=== PATIENT | male | born 2005 | race Caucasian/White ===

== ENCOUNTER 2024-09-28 13:12 | Emergency (ER) | payer OTHER, SELFPAY ==
[2024-09-28 13:15] VITALS: BP 125/83
[2024-09-28 13:50] LABS: COVID-19 Antigen Negative (Negative)
--- NOTE | 2024-09-28 14:57 | ED.GENMED ---
History of Present Illness
General
Chief Complaint: Fever
Source: patient
Exam Limitations: none
Time Seen by Provider: 09/28/24 14:43
History of Present Illness
History of Present Illness:
19yoM with a history of autism presenting with his halfway counselor for evaluation of a fever. Patient started to become sick about 2 days ago. Symptoms include fever, cough, sore throat, and congestion. He is having a burning sensation in
his chest primarily with coughing. Tmax 103. He has been taking DayQuil and Mucinex. Several employees and members of the halfway are also sick currently with similar symptoms. No abdominal pain, vomiting, diarrhea.
Phy Exam
General Physical Exam
General Presentation: well appearing and no apparent distress
General age: appears stated age
General Skin: warm and dry
General Habitus: normal
General Mental: alert
ENT Exam
ENT Exam: pharynx normal, neck supple and normocephalic
Cardiovascular Exam
Cardiovascular Exam: regular rate/rhythm and no murmur
Pulmonary Exam
Pulmonary Exam: lungs clear, no respiratory distress, no rales, no crackles and no rhonchi
Neurological Exam
Neurological Exam: alert
[place] Coma Scale
Eye Opening: Spontaneous
Verbal Response: Oriented
Motor Response: Obeys Commands
GCS Total Score: 15
Skin Exam
Skin Exam: normal color and warm/dry
Psychiatric Exam
Psychiatric Exam: normal mood/affect
Course
Orders/Labs/Results
Orders:
Orders
09/28/24 13:20
COVID-19 Antigen Urgent
Source: Nasal Swab
Influenza A+B Rapid Molecular Urgent
RHIANNA Source: Nasal Swab
Specimen Description:
Vital Signs
Initial and Last Documented VS:
Initial Vital Signs
Temp Pulse Resp BP Pulse Ox
100.7 F H 117 20 125/83 98
09/28/24 13:15 09/28/24 13:15 09/28/24 13:15 09/28/24 13:15 09/28/24 13:15
Last Documented Vital Signs
Temp Pulse Resp BP Pulse Ox
100.7 F H 117 20 125/83 98
09/28/24 13:15 09/28/24 13:15 09/28/24 13:15 09/28/24 13:15 09/28/24 13:15
MDM/Problems Addressed
Differential Diagnosis Includes:
19yoM here with flu-like symptoms x 2 days. C/o fevers, cough, congestion. Several other people at his halfway also sick. He is febrile to 100.7 on arrival with associated tachycardia. Remainder of vital signs normal. He is well-appearing in
no acute distress. Exam reassuring. Differential diagnosis includes but is not limited to: Viral illness, bronchitis, less likely pneumonia
Influenza swab sent in triage. Patient is positive for influenza A. No indication for further workup. Supportive care discussed. Advised follow-up with PCP and ED return precaution discussed. He was discharged stable condition.
*Critical Care Note
Total Time (30-74mins, 75-104mins- exclusive of procedures): Not Applicable
ED Attending Note
-
Portions of this chart may have been created with voice recognition software.� Occasional wrong word or��sound alike� substitutions may have occurred due to the inherent limitations of voice recognition software.
Discharge Plan
Departure
Patient Disposition: Home (Routine Discharge)
Date of Disposition: 09/28/24
Time of Disposition: 15:00
Patient with high blood pressure during this ER visit?: No
Discharge Problem:
Influenza A
Instructions: Flu in adults - ED discharge instructions
Activity Restrictions/Additional Instructions:
Drink plenty of fluids and rest. Take Tylenol and ibuprofen as needed for fevers.
Please follow-up with your family doctor. Return to the ER with any worsening symptoms or trouble breathing.
Interventions
Interventions:
*Risk Screen - Suicide Last Done: 09/28/24 13:15
*General Assessment Last Done: 09/28/24 13:15
*Neglect/Abuse Screening Last Done: 09/28/24 13:15
ED- Fall Risk Assessment Last Done: 09/28/24 15:15
*ED COVID-19 Vaccine History Last Done: 09/28/24 13:15
*Nursing Disposition Last Done: 09/28/24 15:15
ED- Neurological Assessment Last Done: 09/28/24 15:15
ED-Skin Assessment Last Done: 09/28/24 15:15
Discharge Date and Time
Discharge Date/Time: 09/28/24 15:16
Print Language: ITALIAN
== END 2024-09-28 15:16 | disposition home or self-care (01) ==
LOC: EMR 13:12
PROVIDERS: EMERGENCY PHYSICIAN Emergency Medicine; FAMILY PHYSICIAN Family Medicine
DX: J10.1 Influenza due to other identified influenza virus with other respiratory manifestations (principal); F84.0 Autistic disorder
CPT/HCPCS: 99283; 87502; 87811